=== PATIENT | female | born 1945 | race Hispanic/Latino ===

== ENCOUNTER → 2022-05-06 | Outpatient (CLI) | payer OTHER, MEDICARE | END | disposition home or self-care (01) | LOC: SHCH 09:50 | PROVIDERS: ATTEND Internal Medicine Cardiovascular Disease | DX: I11.9 Hypertensive heart disease without heart failure (principal); E11.9 Type 2 diabetes mellitus without complications; E78.5 Hyperlipidemia, unspecified | CPT/HCPCS: 93306 ==

== ENCOUNTER → 2022-06-29 | Outpatient (CLI) | payer OTHER, MEDICARE ==
[2022-06-29 13:28] LABS: ALBUMIN 3.8 g/dL (3.5-5.0); CREATININE 0.6 mg/dL (0.5-1.5); POTASSIUM 4.1 mmol/L (3.5-5.1); TOTAL PROTEIN, SERUM 7.2 g/dL (6.0-8.3)
== END | disposition home or self-care (01) ==
LOC: LAB 08:48
PROVIDERS: ATTEND Internal Medicine Cardiovascular Disease
DX: R94.31 Abnormal electrocardiogram [ECG] [EKG] (principal)
CPT/HCPCS: 36415; 80053

== ENCOUNTER → 2022-07-10 | Outpatient (CLI) | payer OTHER, MEDICARE ==
[~2022-07-10] MED LIST: IOHEXOL 350 MG/ML 100ML INFUS..BTL IV ONE
== END | disposition home or self-care (01) ==
LOC: RAH 06:58
PROVIDERS: ATTEND Internal Medicine Cardiovascular Disease
DX: K80.20 Calculus of gallbladder without cholecystitis without obstruction (principal); I65.23 Occlusion and stenosis of bilateral carotid arteries; R55 Syncope and collapse
CPT/HCPCS: 70496; 71275; 70498; Q9967

== ENCOUNTER → 2023-10-08 | Outpatient (CLI) | payer OTHER | END | disposition home or self-care (01) | LOC: RAH 08:44 | PROVIDERS: ATTEND Internal Medicine Cardiovascular Disease | DX: Z13.6 Encounter for screening for cardiovascular disorders (principal); R93.1 Abnormal findings on diagnostic imaging of heart and coronary circulation | CPT/HCPCS: 75571 ==

== ENCOUNTER → 2024-05-10 | Outpatient (CLI) | payer OTHER, MEDICARE ==
--- NOTE | 2024-05-10 15:49 | HMCIMG ---
CT CHEST W/WO CONTRAST REASON: SOLITARY PULMONARY NODULE COMPARISON: 07/10/2022. TECHNIQUE: Images are obtained from thoracic inlet through the lung bases before and after IV contrast, 100 cc Omnipaque 350. TECHNIQUE: Multiple sequential axial images of the chest were obtained from the thoracic inlet through the upper pole of the kidneys without intravenous contrast administration. FINDINGS: There are no visible pulmonary nodules. There is normal-appearing pulmonary parenchyma. There are no focal infiltrates. Contrast outlines normal appearing hilar and mediastinal structures. There is no mass or lymphadenopathy. Chest wall structures appear normal. Visualized upper abdominal structures appear unremarkable for exception of stones present within the gallbladder. IMPRESSION: 1. No acute finding on the PA and postcontrast CT chest, no evidence of a pulmonary nodule. 2. Cholel[address]iasis. [address] was performed with one or more following dose reduction techniques: automated exposure control, adjustment of the mA and kv according to patient's size, or use of a iterative reconstruction technique.
== END | disposition home or self-care (01) ==
LOC: RAH 13:25
PROVIDERS: ATTEND Internal Medicine
DX: K80.20 Calculus of gallbladder without cholecystitis without obstruction (principal)
CPT/HCPCS: 71270; Q9967

== ENCOUNTER → 2024-06-27 | Outpatient (CLI) | payer OTHER, MEDICARE ==
--- NOTE | 2024-06-28 08:26 | HMCSR ---
APPROVED REPORT Laterality: Bilateral Indications i65.23 Doppler Spectral Velocity Analysis PSV / EDVPSV / EDV ECA (R) 75 / cm/sECA (L) 78 / cm/s dICA (R) 84 / 28 cm/sdICA (L) 87 / 36 cm/s Jimmy (R) 93 / 35 cm/smICA (L) 101 / 33 cm/s pICA (R) 89 / 26 cm/spICA (L) 88 / 17 cm/s dCCA (R) 66 / 15 cm/sdCCA (L) 105 / 24 cm/s mCCA (R) 61 / 16 cm/smCCA (L) 87 / 26 cm/s pCCA (R) 86 / 17 cm/spCCA (L) 100 / 34 cm/s Vert (R) 56 / cm/sVert (L) 51 / cm/s Subl. (R) 356 / cm/sSubl. (L) 156 / cm/s ICA/CCA 1.08ICA/CCA 0.96 Technologist Impression Mild plaque noted in the bilateral carotid bulbs. Right and left ICA appear patent, without hemodynamic significance. Bilateral vertebral arteries appear antegrade. Right subclavian artery velocities are suggestive of >70% stenosis. Conclusion Mild plaque noted in the bilateral carotid bulbs. Right and left ICA appear patent, without hemodynamic significance. Bilateral vertebral arteries appear antegrade. Right subclavian artery velocities are suggestive of >70% stenosis. Conclusion Mild plaque noted in the bilateral carotid bulbs. Right and left ICA appear patent, without hemodynamic significance. Bilateral vertebral arteries appear antegrade. Right subclavian artery velocities are suggestive of >70% stenosis.
== END | disposition home or self-care (01) ==
LOC: SHCH 10:55
PROVIDERS: ATTEND Internal Medicine Cardiovascular Disease
DX: I65.23 Occlusion and stenosis of bilateral carotid arteries (principal); R09.89 Other specified symptoms and signs involving the circulatory and respiratory systems
CPT/HCPCS: 93880

== ENCOUNTER → 2024-07-13 | Outpatient (CLI) | payer OTHER, MEDICARE ==
--- NOTE | 2024-07-13 13:54 | HMCIMG ---
CT ORB/MICHELA/EAR W/O CONTRAST Indication: CONTUSSION OF EYEBALL AND ORBIT Technique: Multiple thin section axial images were performed through the face and paranasal sinuses. Coronal reconstructions were performed in soft tissue and bone windows, as well as sagittal reconstructions. Findings: Paranasal sinuses are unremarkable. There is no evidence of facial fracture. Visualized soft tissues are unremarkable. No abnormal contrast enhancement. Visualized intracranial contents are unremarkable. Impression: No acute abnormality of the face.
--- NOTE | 2024-07-13 13:54 | HMCIMG ---
Exam Type: CT HEAD/BRAIN W/O CONTRAST Clinical Information: CONTUSSION OF EYEBALL AND ORBIT Comparison: None CT Dose Index (CTDI): 57.33 mGy Dose Length Product (DLP): 956.79 total mGy-cm Findings: The examination shows atrophy. There is low attenuation throughout the periventricular white matter locations, consistent with chronic small vessel ischemic changes. 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 No acute intra- or extra-axial fluid collections are seen. There is no evidence of acute or chronic hemorrhage. There is no mass effect or shift of midline structures. The skull windows show no significant abnormalities. IMPRESSION: 1. ATROPHY AND CHRONIC ISCHEMIC CHANGES. This study was performed using dose reduction techniques to include automated exposure control and/or adjustment of the mA and/or kV according to patient size.
== END | disposition home or self-care (01) ==
LOC: RAH 12:58
PROVIDERS: ATTEND Internal Medicine
DX: S05.11XA Contusion of eyeball and orbital tissues, right eye, initial encounter (principal); G31.89 Other specified degenerative diseases of nervous system; I67.82 Cerebral ischemia; Z91.81 History of falling; X58.XXXA Exposure to other specified factors, initial encounter; Y93.89 Activity, other specified; Y92.89 Other specified places as the place of occurrence of the external cause; Y99.8 Other external cause status
CPT/HCPCS: 70450; 70480